=== PATIENT | male | born 1975 | race Caucasian/White ===

== ENCOUNTER → 2018-03-13 | Outpatient (CLI) | payer BC ==
[~2018-03-13] MED LIST: AMLODIPINE BESYL5 MG PO; ATORVASTATIN CA40 MG PO; BENZONATATE100 MG PO; BYDUREON INJ; COMBIVENT INH14.7 GM PO; CYCLOBENZAPRINE10 MG PO; FARXIGA PO; GABAPENTIN400 MG PO; LIDOCAINE700 MG TOP; METFORMIN HCL500 MG PO; MIRTAZAPINE15 MG PO; NITROSTAT0.4 MG PO; TOUJEO INJ; ZOCOR20 MG PO; ZOLOFT25 MG PO
--- NOTE | 2018-03-13 13:16 | Diagnostic Imaging Report ---
PROCEDURE:US LIVER COMPARISON:None. INDICATIONS:Hepatitis C TECHNIQUE: [place]-scale and color doppler transverse and longitudinal images of the right upper quadrant of the abdomen were obtained. FINDINGS: Suboptimal exam due to patient's large right habitus. Liver: 15.8 cm in right mid-clavicular line. Slightly increased echogenicity. No masses. Main portal vein: 1.1 cm, hepatopetal flow Gallbladder: Absent Common Bile Duct: 0.3 cm Sonographic Chester's sign: Negative Right kidney: 11.0 cm. Normal echogenicity. No solid masses, stones or hydronephrosis. 1.1 x 0.8 x 0.9 cm cystic, anechoic, mostly exophytic lesion in the superolateral aspect. Pancreas: The visualized portions are unremarkable. Inferior vena cava: Patent Aorta: Proximal and mid portions are unremarkable. Distal portion is obscured. Ascites: None in the right upper quadrant of the abdomen. CONCLUSION: 1. Liver size in the upper limit of normal. Mild increase echogenicity, likely reflecting mild hepatic steatosis. No focal lesions. 2. 1.1 cm right renal simple cyst. Morro Landers M.D. Dictated by: Morro Landers M.D. on 03/13/2018 at 13:20 Electronically approved by: Morro Landers M.D. on 03/13/2018 at 13:20
== END ==
LOC: US 11:33
PROVIDERS: ATTEND Internal Medicine Gastroenterology
DX: B19.20 Unspecified viral hepatitis C without hepatic coma (principal)
CPT/HCPCS: 76705

== ENCOUNTER 2018-04-24 18:24 | Emergency (ER) | payer BC ==
[~2018-04-24] VITALS: Ht 170.2 cm; Wt 121.6 kg
[~2018-04-24 18:24] MED LIST changes: -FENTANYL CITRATE/PF 100MCG/2 ML INJ ONE; -GELATIN SPONGE 12-7MM ONE; -MIDAZOLAM HCL 2 MG/2 ML VIAL ONE; -MORPHINE SULFATE 2 MG/ML SYR IV STA; -MORPHINE SULFATE 2 MG/ML SYR ONE; -SODIUM CHLORIDE 0.9% 500ML 500 ML ONE
[2018-04-24] MEDS ORDERED: ONDANSETRON HCL INJ 2 MG/ML VIAL IV STA (19:08)
[2018-04-24 19:20] LABS: BASOPHILS % 0.4 % (0.0-1.0); EOSINOPHILS # (AUTO) 0.2 (0.0-0.4); HEMATOCRIT 46.4 % (38.2-49.6); HEMOGLOBIN 15.5 g/dL (14.0-18.0); LYMPHOCYTES % 19.6 % (18.0-39.1); MEAN CORPUSCULAR HEMOGLOBIN 27.9 pg (28-32); MEAN CORPUSCULAR HGB CONC 33.4 g/dL (31-35); MEAN CORPUSCULAR VOLUME 83.6 fL (81-99); MONOCYTES % 9.4 % (4.4-11.3); NEUTROPHILS # (AUTO) 7.1 (2.1-6.9); NEUTROPHILS % 68.1 % (38.7-80.0); PLATELET COUNT 172 x10e3/uL (140-360); RED BLOOD COUNT 5.55 x10e6/uL (4.3-5.7)
[2018-04-24] MEDS ORDERED: MORPHINE SULFATE 2 MG/ML SYR IV ONE (19:30)
[2018-04-24 19:38] LABS: ALANINE AMINOTRANSFERASE 103 IU/L (0-55); ALBUMIN 3.8 g/dL (3.5-5.0); ALKALINE PHOSPHATASE 161 IU/L (40-150); ANION GAP 14.6 mmol/L (8-16); BLOOD UREA NITROGEN 16 mg/dL (7-26); BUN/CREATININE RATIO 18 (6-25); CALCIUM 9.6 mg/dL (8.4-10.2); CARBON DIOXIDE 27 mmol/L (22-29); CHLORIDE 99 mmol/L (98-107); CREATININE, SERUM 0.88 mg/dL (0.72-1.25); EST GLOMERULAR FILTRATION RATE > 60 ML/MIN (60-); GLUCOSE 122 mg/dL (74-118); POTASSIUM 3.6 mmol/L (3.5-5.1); SODIUM 137 mmol/L (136-145)
--- NOTE | 2018-04-24 19:57 | Diagnostic Imaging Report ---
EXAMINATION: CHEST SINGLE (PORTABLE) INDICATION: \S\R/O PNEUMOTHORAX \S\[id number] \S\1930 \S\N COMPARISON: None FINDINGS: AP view TUBES and LINES: None. LUNGS: Lungs are well inflated. Lungs are clear. There is no evidence of pneumonia or pulmonary edema. PLEURA: No pleural effusion or pneumothorax. HEART AND MEDIASTINUM: The cardiomediastinal silhouette is unremarkable.. BONES AND SOFT TISSUES: No acute osseous lesion. Soft tissues are unremarkable. UPPER ABDOMEN: No free air under the diaphragm. IMPRESSION: No acute thoracic abnormality. Specifically, no pneumothorax. Signed by: Dr. Hollie Potter M.D. on 04/24/2018 7:54 PM
[2018-04-24 20:42] LABS: INR 1.08; PROTHROMBIN TIME 13.2 seconds (11.9-14.5)
[2018-04-24 20:43] LABS: PARTIAL THROMBOPLASTIN TIME 25.1 seconds (23.8-35.5)
--- NOTE | 2018-04-24 20:47 | Diagnostic Imaging Report ---
EXAM: CT Abdomen and Pelvis WITH contrast INDICATION: \S\SEVERE ABD PAIN S/P LIVER BIOPSY \S\[id number] \S\2015 \S\N COMPARISON: Chest radiograph 04/24/2018 and liver biopsy ultrasound 04/24/2018 TECHNIQUE: Abdomen and pelvis were scanned utilizing a multidetector helical scanner from the lung base to the pubic symphysis after administration of IV contrast. Coronal and sagittal reformations were obtained. Routine protocol was performed. Scan was performed when during portal venous phase. IV CONTRAST: 100 mL of Isovue-370 ORAL CONTRAST: Water RADIATION DOSE: Total DLP: A 56.6 mGy*cm Estimated effective dose: (DLP x 0.015 x size factor) mSv COMPLICATIONS: None FINDINGS: LINES and TUBES: None. LOWER THORAX: Unremarkable HEPATOBILIARY: No abnormal perfusion or subcapsular hematomas. No focal hepatic lesions. No biliary ductal dilation. GALLBLADDER: Surgically absent. SPLEEN: No splenomegaly. PANCREAS: No focal masses or ductal dilatation. ADRENALS: No adrenal nodules KIDNEYS/URETERS: Kidneys enhance symmetrically. No hydronephrosis. 7 mm nonobstructing calcified stone in the inferior pole of the right kidney. 2 1 3-mm calcified stones within the interpolar and inferior pole of the left kidney. No cystic lesions or renal masses. GI TRACT: No abnormal distention, wall thickening, or evidence of bowel obstruction. Scattered diverticulosis of the sigmoid colon. Appendix is normal. PELVIC ORGANS/BLADDER: Unremarkable. LYMPH NODES: Few indeterminate up to 1 cm noncalcified mesenteric lymph nodes. VESSELS: Unremarkable. PERITONEUM / RETROPERITONEUM: No free air or fluid. BONES: Unremarkable. SOFT TISSUES: Unremarkable. IMPRESSION: Normal appearance of the liver without subcapsular hematoma or free fluid in the abdomen and pelvis. Bilateral nonobstructing nephrolithiasis. Signed by: Dr. Hollie Potter M.D. on 04/24/2018 8:44 PM
[2018-04-24] MEDS ORDERED: SODIUM CHLORIDE 0.9% 50ML 50 ML ONE (22:14)
[2018-04-24] MEDS ORDERED: IOPAMIDOL 370 MG/ML 200 ML INFUS..BTL INJ ONE (22:15)
[2018-04-24 22:43] VITALS: BP 115/76
== END 2018-04-24 22:52 | disposition home or self-care (01) ==
LOC: ER 18:24
DX: Z98.890 Other specified postprocedural states (principal); R10.11 Right upper quadrant pain; B19.20 Unspecified viral hepatitis C without hepatic coma; I10 Essential (primary) hypertension; E11.9 Type 2 diabetes mellitus without complications
CPT/HCPCS: 36415; 71045; 74177; 80053; 85025; 85610; 85730; 99284; J2270; J2405; Q9967

== ENCOUNTER → 2018-04-24 | Outpatient (CLI) | payer BC ==
[~2018-04-24] MED LIST changes: +FENTANYL CITRATE/PF 100MCG/2 ML INJ ONE; +GELATIN SPONGE 12-7MM ONE; +MIDAZOLAM HCL 2 MG/2 ML VIAL ONE; +MORPHINE SULFATE 2 MG/ML SYR IV STA; +MORPHINE SULFATE 2 MG/ML SYR ONE; +SODIUM CHLORIDE 0.9% 500ML 500 ML ONE
[2018-04-24 09:08] LABS: INR 1.02; PARTIAL THROMBOPLASTIN TIME 25.2 seconds (23.8-35.5); PROTHROMBIN TIME 12.6 seconds (11.9-14.5)
--- NOTE | 2018-04-24 10:56 | Diagnostic Imaging Report ---
PROCEDURE:IR BIOPSY LIVER COMPARISON:None. INDICATIONS:Hepatitis C Conscious sedation: Fentanyl 100 mcg intravenous, Versed 2 mg intravenous. The patient's heart rate and pulse oximetry were continuously monitored by the interventional radiology nurse. Blood pressure was monitored at 5 minute intervals. BLOOD LOSS: Less than 10 cc Blood products administered: None Complications: No immediate Implants/grafts: None Specimens: Core biopsy specimen x4 Condition at completion of procedure: Stable Disposition: Radiology holding area FINDINGS: After informed consent was obtained, the patient was placed in the right anterior oblique position. A safe entry route into the right lobe of the liver was identified by ultrasound and the overlying skin was prepped and draped in usual sterile fashion. Lidocaine 1% was delivered for local anesthesia. Under ultrasound guidance, a 17 gauge needle guide was advanced into the right lobe of the liver. Subsequently, a total of 4 specimens were obtained coaxially using an 18 gauge, 2 cm throw core biopsy apparatus. Specimens were placed in formalin and submitted for histologic analysis. At the conclusion of sampling, a small amount of Gelfoam slurry was injected as the needle guide was removed for augmentation of hemostasis. Post procedure sonographic evaluation showed no evidence of perihepatic hematoma. A sterile dressing was applied. The patient tolerated the procedure well and there were no immediate post-procedural complications. The patient was transferred in stable condition to the radiology holding area for observation. CONCLUSION: Uncomplicated ultrasound-guided random liver biopsy. Samples sent to Pathology for analysis. Dictated by: Kiran Thakkar M.D. on 04/24/2018 at 11:01 Electronically approved by: Kiran Thakkar M.D. on 04/24/2018 at 11:01
--- NOTE | 2018-04-24 10:57 | Diagnostic Imaging Report ---
PROCEDURE:ULTRASOUND GUIDANCE FOR PROCEDURE COMPARISON:None. INDICATIONS: RANDOM LIVER BX PROCEDURE: See conclusion CONCLUSION: Refer to "BIOPSY LIVER" also from 04/24/2018 for full dictated report. Dictated by: Kiran Thakkar M.D. on 04/24/2018 at 11:01 Electronically approved by: Kiran Thakkar M.D. on 04/24/2018 at 11:01
== END ==
LOC: US 07:26
PROVIDERS: ATTEND Internal Medicine Gastroenterology
DX: B19.20 Unspecified viral hepatitis C without hepatic coma (principal)
CPT/HCPCS: 36415; 47000; 76942; 85049; 85610; 85730; 88307; 88313; J2250; J2270; J7040